=== PATIENT | female | born 1985 | race Caucasian/White ===

== ENCOUNTER 2021-05-27 12:55 | Emergency (ER) | payer SELFPAY ==
[~2021-05-27] VITALS: Ht 152.4 cm; Wt 67.0 kg
[2021-05-27] MEDS ORDERED: CLIN300C12 MT (19:44)
[2021-05-27] MEDS ORDERED: CLINDAMYCIN HCL 150MG CAPSULE PO SCH (19:45)
[2021-05-27] MEDS ORDERED: HYDROCODONE/APAP 7.5/325MG 1 TAB TABLET PO ONE (19:45)
[2021-05-27] MEDS ORDERED: IBUPROFEN 600MG TABLET PO ONE (19:45)
[2021-05-27 20:06] VITALS: BP 125/66
== END 2021-05-27 23:50 | disposition home or self-care (01) ==
LOC: ER 12:55
DX: L02.412 Cutaneous abscess of left axilla (principal); F41.9 Anxiety disorder, unspecified; I10 Essential (primary) hypertension; Z98.890 Other specified postprocedural states
CPT/HCPCS: 10060; 81025; 99284; Z7610

== ENCOUNTER 2021-07-03 15:32 | Emergency (ER) | payer SELFPAY ==
[~2021-07-03] VITALS: Ht 165.1 cm; Wt 74.0 kg
[~2021-07-03 15:32] MED LIST: CLIN300C12 MT
[2021-07-03 15:48] VITALS: BP 138/78
[2021-07-03] MEDS ORDERED: ACETAMINOPHEN WITH CODEINE 300/30MG TABLET PO ONE (16:30)
[2021-07-03] MEDS ORDERED: NAPR-681 MT (17:18)
== END 2021-07-03 18:12 | disposition home or self-care (01) ==
LOC: ER 15:32
DX: M25.561 Pain in right knee (principal); F41.9 Anxiety disorder, unspecified; J45.909 Unspecified asthma, uncomplicated; I10 Essential (primary) hypertension
CPT/HCPCS: 73562; 99283; L1830; Z7610

== ENCOUNTER 2021-09-10 11:45 | Emergency (ER) | payer SELFPAY ==
[~2021-09-10] VITALS: Ht 160 cm; Wt 66.0 kg
[~2021-09-10 11:45] MED LIST changes: +NAPR-681 MT
[2021-09-10 12:08] VITALS: BP 102/66
[2021-09-10] MEDS ORDERED: CEPH500C2 MT (20:35)
[2021-09-10] MEDS ORDERED: IBUP-2029 MT (20:35)
== END 2021-09-10 15:45 | disposition left against medical advice (07) ==
LOC: ER 11:45
DX: Z53.21 Procedure and treatment not carried out due to patient leaving prior to being seen by health care provider (principal)

== ENCOUNTER 2021-09-10 18:46 | Emergency (ER) | payer SELFPAY ==
[~2021-09-10] VITALS: Ht 149.9 cm; Wt 64.0 kg
[2021-09-10] MEDS ORDERED: KETOROLAC 60MG/2ML VIAL IM ONE (20:30)
[2021-09-10] MEDS ORDERED: CEFTRIAXONE SODIUM 1 G/VIAL IM ONE (20:30)
[2021-09-10] MEDS ORDERED: IBUP-2029 MT (20:35)
[2021-09-10] MEDS ORDERED: CEPH500C2 MT (20:35)
[2021-09-10 20:48] VITALS: BP 120/78
== END 2021-09-10 21:07 | disposition home or self-care (01) ==
LOC: ER 18:46
DX: N76.2 Acute vulvitis (principal); K62.89 Other specified diseases of anus and rectum; I10 Essential (primary) hypertension; J45.909 Unspecified asthma, uncomplicated
CPT/HCPCS: 96372; 99284; J0696; J1885